=== PATIENT | male | born 1960 | race African-American/Black ===

== ENCOUNTER 2024-09-20 19:48 | Emergency (ER) | payer BC, SELFPAY ==
[2024-09-20 19:50] VITALS: BP 161/82
[2024-09-20 20:08] LABS: Urine Albumin Negative (Neg - Trace); Urine Bilirubin Negative (Negative); Urine Character Clear (Clear); Urine Color Yellow; Urine Glucose Negative (Negative); Urine Ketone Negative (Negative); Urine Leukocyte Negative (Negative); Urine Nitrite Negative (Negative); Urine Occult Blood 4+ (Negative); Urine Specific Gravity 1.015 (<1.030); Urine Urobilinogen Negative (Neg - 1+)
[2024-09-20 20:10] LABS: % Basophils 0.6 % (0-2); % Immature Granulocytes 0.2 % (0-0.5); % Monocytes 12.2 % (1.7-9.3); Absolute Basophils 0.1 10^3/uL (0-0.2); Absolute Eosinophils 0.1 10^3/uL (0-0.7); Absolute Lymphocytes 2.1 10^3/uL (1.2-3.4); Absolute Monocytes 1.1 10^3/uL (0.1-0.6); Absolute Neutrophils 5.5 10^3/uL (1.4-6.5); Hematocrit 38.7 % (39.0-52.0); Hemoglobin 12.6 g/dL (13.0-18.0); Mean Corp Hgb Conc. 32.6 g/dL (33.0-37.0); Mean Corpuscular Volume 82.9 fL (80.0-94.0); Mean Platelet Volume 10.1 fL (7.4-10.4); Nucleated Red Blood Cells % 0 % (-); Platelet Count 284 10^3/uL (130-400); Red Blood Cell Count 4.67 10^6/uL (4.70-6.10); Red Cell Dist. Width 15.2 % (11.5-14.5); White Blood Cell Count 8.8 10^3/uL (4.8-10.8)
[2024-09-20 20:22] LABS: Urine Red Blood Cell 30-40 /HPF (0-2)
[2024-09-20 20:23] LABS: Urine Bacteria Few (Negative); Urine White Cell 0-2 /HPF (0-5)
[2024-09-20 20:31] LABS: ALT (SGPT) 23 U/L (0-50); AST (SGOT) 24 U/L (17-59); Albumin 4.3 g/dl (3.5-5.0); Alkaline Phosphatase 64 U/L (38-126); Blood Urea Nitrogen 13 mg/dl (9-20); Carbon Dioxide 27 mmol/L (22-30); Chloride 104 mmol/L (98-107); Glucose 90 mg/dl (70-99); Potassium 3.3 mmol/L (3.5-5.1); Sodium 139 mmol/L (135-145); Total Bilirubin 1.1 mg/dl (0.2-1.3); Total Protein 7.2 g/dl (6.3-8.2); eGFR 51.67
[2024-09-20 20:33] LABS: Lipase 77 U/L (23-300)
[2024-09-20] MEDS: ZOFRAN 4 MG IV (21:59)
[2024-09-20] MEDS: TORADOL 15 MG IV (21:59)
--- NOTE | 2024-09-20 23:30 | ED.GENMED ---
History of Present Illness
General
Chief Complaint: Abdominal Pain
Source: patient
Exam Limitations: none
Time Seen by Provider: 09/20/24 22:37
History of Present Illness
History of Present Illness:
This is a 64 year old male that comes in with c/o left sided abd pain. States that since Thursday he has had some pain in the back and abd that would come and go. Today the pain got worse and he couldn't make it home. States that he has also had
hematuria since Thursday. States that he was nauseated and had dry heaves. Denies any fever, chills, chest pain, SOB, vomiting, headache, dizziness, urinary burning.
Past History
Past History
ED Past Medical History: Arrthythmia (Atrial fib), Cancer (prostate CA), HTN, Hypercholesterolemia, NIDDM and Other (Ulcers)
ED Past Surgical History: Cardiac (Mitral valve repair, ), Urological (Prostatectomy) and Other (Sinus surgery X 2)
Social History
Tobacco: Former smoker
Alcohol: Occasional
Personal:
Living: alone
Review of Systems
Review of Systems
All Other Systems: ROS reviewed and negative except as documented in HPI and ROS
Constitutional: Reports no symptoms; Denies fever or chills
Respiratory: Reports no symptoms; Denies cough or trouble breathing
Cardiac: Reports no symptoms; Denies chest pain
ABD/GI: Reports abdominal pain, nausea and diarrhea; Denies vomiting
: Reports bleeding (hematuria); Denies dysuria, frequency or urgency
Musculoskeletal: Reports no symptoms
Skin: Reports no symptoms
Neurological: Reports no symptoms; Denies dizzy or headache
Psychiatric: Reports no symptoms
Phy Exam
General Physical Exam
General Presentation: well appearing and no apparent distress
General age: appears stated age
General Skin: warm and dry
General Habitus: normal
General Mental: alert
General Hydration: appears well hydrated
ENT Exam
ENT Exam: TM's normal, pharynx normal and neck supple
Eye Exam
Eye Exam: EOMI
Cardiovascular Exam
Cardiovascular Exam: regular rate/rhythm, no edema and normal peripheral pulses
Pulmonary Exam
Pulmonary Exam: lungs clear, no respiratory distress, no rales, chest non tender, no crackles, no rhonchi, no wheezing and no cough
Gastrointestinal Exam
Gastrointestinal Exam: normal bowel sounds, non tender, soft, no organomegaly, no pulsatile mass and non distended
Musculoskeletal Exam
Musculoskeletal Exam: full ROM and no edema
Skin Exam
Skin Exam: normal color, warm/dry, no rash and no petechia
Psychiatric Exam
Psychiatric Exam: normal mood/affect
Course
Orders/Labs/Results
Orders:
Orders
09/20/24 20:01
Complete Blood Count/With Diff Urgent
Comprehensive Metabolic Panel Urgent
Lipase Urgent
Urinalysis Reflex To Culture Urgent
Date Specimen was Collected: 09/20/24
Time Specimen was Collected: 19:53
Urine Microscopic Reflex Cult Urgent
09/20/24 21:31
CT Abd/pel Without Iv Or Oral Urgent
Comment:
Reason For Exam: left flank pain R/O kidney stone.
09/20/24 21:55
Ketorolac [Toradol] 15 mg IV NOW STA
Ondansetron Injectable [Zofran] 4 mg IV NOW STA
09/21/24 00:03
HYDROmorphone [Dilaudid] 1 mg IV NOW STA
Ondansetron Injectable [Zofran] 4 mg IV NOW STA
Tamsulosin [Flomax] 0.4 mg PO NOW STA
09/21/24 00:[address] Non Medication Order As Directed
Physician Order: Please make disc of CT so patient can take with him.
Abnormal Lab Results
09/20/24
20:01
RBC 4.67 L 10^6/uL
(4.70-6.10)
Hgb 12.6 L g/dL
(13.0-18.0)
Hct 38.7 L %
(39.0-52.0)
MCHC 32.6 L g/dL
(33.0-37.0)
RDW 15.2 H %
(11.5-14.5)
Absolute Monos (auto) 1.1 H 10^3/uL
(0.1-0.6)
Monocytes % 12.2 H %
(1.7-9.3)
Potassium 3.3 L mmol/L
(3.5-5.1)
Creatinine 1.5 H mg/dL
(0.7-1.3)
Ur Occult Blood Reflex 4+ A
(Negative)
Urine RBC 30-40 A /HPF
(0-2)
Urine Bacteria (Reflex) Few A
(Negative)
09/20/24 20:01
09/20/24 20:01
H/H slightly low, Potassium slightly low. Urine negative for infection. Lipase normal at 77,
Vital Signs
Initial and Last Documented VS:
Initial Vital Signs
Temp Pulse Resp BP Pulse Ox
97.8 F 74 18 161/82 100
09/20/24 19:50 09/20/24 19:50 09/20/24 19:50 09/20/24 19:50 09/20/24 19:50
Last Documented Vital Signs
Temp Pulse Resp BP Pulse Ox
97.8 F 68 21 138/83 100
09/20/24 19:50 09/21/24 00:30 09/21/24 00:30 09/21/24 00:00 09/21/24 00:30
MDM/Problems Addressed
Differential Diagnosis Includes:
Renal calculus. UTI,
MDM/Problems Addressed:
This is a 64 year old male that comes in with c/o left sided back and abd pain. States that he has had some pain since Thursday but today it became worse.
Will check labs and CT scan. Will give pain medication.
Back into see patient. Explained that he has a left renal calculus. Patient has a Urologist in [place] that he can follow up with. Will place patient on Flomax to relax the smooth muscle . Will sent a prescription for Zofran to his pharmacy to
help with any nausea/vomiting. Patient can also use Tylenol 1000mg every 6 hours for pain and will give patient a narcotic pain medication for severe pain. Patient to return with fever or any other concerns .
Chronic conditions affecting care: DM and Cancer
Acute Exacerbation and/or Progression of Chronic Illness:
NA
*Radiology
Radiology exam reviewed: radiology read reviewed (CT night hawk- 5mm stone within the proximal left urter resulting in mild left hydronephrosis. No bowel obstruction. Normal gallbladder and appendix. Incidentals: Diverticulosis without evidence of
diverticulitis. No hepatic or pancreatic mass. No abdominal aortic aneurysm. No acute osseous abnormal) and all reviewed NAD by ED Provider (CT cont-Rounded atelectasis within the right lower lobe. Small right pleural effusion. No acute abnormality
within the visualized soft tissues. )
*Pulse Oximetry
Patient hypoxic: no
*EKG
Interpreted by ED Provider?: NA
Rate: EKG- N/A
*Ux Visual Designer Interpretation
Rate: Ux Visual Designer- N/A
*Critical Care Note
Total Time (30-74mins, 75-104mins- exclusive of procedures): Not Applicable
ED Attending Note
-
Portions of this chart may have been created with voice recognition software.� Occasional wrong word or��sound alike� substitutions may have occurred due to the inherent limitations of voice recognition software.
Discharge Plan
Departure
Patient Disposition: Home (Routine Discharge)
Date of Disposition: 09/21/24
Time of Disposition: 00:09
Patient with high blood pressure during this ER visit?: No
Condition: Good
Covid-19: Not Applicable
Discharge Problem:
Renal calculus, left
Instructions: Renal Colic (DC), How to Strain Your Urine, Narcotic Pain Medication
Prescriptions:
New
ondansetron 4 mg tablet,disintegrating
4 mg PO Q8H PRN (Reason: nausea and vomiting) Qty: 10 0RF
oxycodone 10 mg tablet
10 mg PO Q6H PRN (Reason: Pain) Qty: 10 0RF
tamsulosin [Flomax] 0.4 mg capsule
0.4 mg PO HS Qty: 5 0RF
Referrals:
NONE,* [Family Provider] -
Activity Restrictions/Additional Instructions:
As discussed, you have a 5mm stone in the left proximal ureter. Please increase your water intake to 8-8oz glasses daily. You have had 3 prescriptions sent to your pharmacy. The first is Flomax that will help relax the smooth muscle so you can pass
the stone. The second is for a narcotic pain medication for severe pain and the last is Zofran to help with any nausea/vomiting. You may also use Tylenol 1000mg every 6 hours for pain. PLEASE FOLLOW UP WITH YOUR UROLOGIST. You have been given a
disc to take without of your CT scan. IF YOU HAVE INCREASED OR CHANGING PAIN, FEVER, OR YOU HAVE ANY OTHER CONCERNS PLEASE RETURN TO THE EMERGENCY ROOM.
Interventions
Interventions:
*Risk Screen - Suicide Last Done: 09/20/24 19:50
*General Assessment Last Done: 09/20/24 19:50
*Neglect/Abuse Screening Last Done: 09/20/24 19:50
ED- Fall Risk Assessment Last Done: 09/20/24 23:39
*ED COVID-19 Vaccine History Last Done: 09/20/24 19:50
*Nursing Disposition Last Done: 09/21/24 00:55
HI-Qqykuj-Dzecjggteq Assessment Last Done: 09/20/24 23:39
Discharge Date and Time
Discharge Date/Time: 09/21/24 00:55
Print Language: BARBADIAN
[2024-09-20 23:37] VITALS: BP 127/82
[2024-09-21] VITALS: BP 138/83
[2024-09-21] MEDS: DILAUDID 1 MG IV (00:23)
[2024-09-21] MEDS: FLOMAX 0.4 MG PO (00:24)
[2024-09-21] MEDS: ZOFRAN 4 MG IV (00:31)
== END 2024-09-21 00:55 | disposition home or self-care (01) ==
LOC: EMR 19:48
PROVIDERS: Emergency Medicine; EMERGENCY PHYSICIAN Student in an Organized Health Care Education/Training Program
DX: N13.2 Hydronephrosis with renal and ureteral calculous obstruction (principal); I10 Essential (primary) hypertension; E78.00 Pure hypercholesterolemia, unspecified; E11.9 Type 2 diabetes mellitus without complications; Z87.891 Personal history of nicotine dependence; Z90.79 Acquired absence of other genital organ(s); Z85.46 Personal history of malignant neoplasm of prostate
CPT/HCPCS: 96374; 96375; 96376; 99284; 74176; 80053; 81003; 81015; 83690; 85025